=== PATIENT | female | born 1960 | race Asian ===

== ENCOUNTER 2017-04-12 11:43 | Emergency (ER) | payer OTHER, BC ==
--- NOTE | 2017-04-12 11:53 | PDOC ---
History of Present Illness - General Chief Complaint: Shortness of Breath Stated Complaint: Shortness of Breath/HEADACHE Time Seen by Provider: 04/12/17 11:50 History Source: Patient Exam Limitations: No Limitations - History of Present Illness Initial Comments: CHIEF COMPLAINT: 56 y/o afebrile female with PMH HTN, HLD c/o SOB with chest pain this morning and right LE pain for the past few days. HISTORY OF PRESENT ILLNESS: The patient states she is short of breath today, no matter what she is doing. This morning she had some anterior chest pain and took an Aspirin. She took her BP at work and it was 185/95. She also admits to right LE pain for the past few days but thinks it's just a muscle. She denies f/c, MAHARAJ, neck pain, changes in vision/hearing, cough, orthopnea, n/v/d, abd pain, hematuria, dysuria, redness/warmth to affected extremity. The patient denies smoking history, recent travel or hormone use. Vital signs on arrival are BP of 170/92. REVIEW OF SYSTEMS: GENERAL/CONSTITUTIONAL: No fever/chills. No weakness. No weight change. HEAD, EYES, EARS, NOSE AND THROAT: No change in vision. No ear pain or discharge. No sore throat. CARDIOVASCULAR: +SOB and chest pain. RESPIRATORY: No cough, wheezing, or hemoptysis. GASTROINTESTINAL: No abd pain, nausea, vomiting, diarrhea. GENITOURINARY: No dysuria, frequency, or change in urination. MUSCULOSKELETAL: +right calf pain. No neck or back pain. SKIN: No rash or easy bruising. NEUROLOGIC: No headache, vertigo, loss of consciousness, or loss of sensation. PHYSICAL EXAM: GENERAL: The patient is awake, alert, and fully oriented, in no acute distress. She is well appearing, ambulatory, in NAD or obvious discomfort. HEAD: Normal with no signs of trauma. ENT: Pupils equal, round and reactive to light, extraocular movements intact, sclera anicteric, conjunctiva clear. Neck supple. LUNGS: Clear to auscultation bilaterally. Normal excursion. No respiratory distress or use of accessory muscles. CV: RRR, S1/S2, no MRG. Cap refill < 2 sec. ABDOMEN: Soft, non-distended, non-tender even to deep palpation, no hepatomegaly or splenomegaly, no masses. EXTREMITIES: Normal range of motion, no edema. No erythema, warmth or edema to right LE. TTP of medial, proximal right calf. NEUROLOGICAL: Normal speech, normal gait. CN II-XII grossly intact. PSYCH: Normal mood, normal affect. SKIN: Warm, dry, normal turgor, no rashes or lesions noted. Past History - Past Medical History Allergies/Adverse Reactions: Allergies Allergy/AdvReac Type Severity Reaction Status Date / Time No Known Allergies Allergy Verified 10/25/15 07:33 Home Medications: Ambulatory Orders Atorvastatin Ca [Lipitor -] 10 mg PO HS 10/25/15 Metoprolol Tartrate [Lopressor -] 25 mg PO DAILY 10/25/15 Hydrochlorothiazide [Hctz -] 12.5 mg PO DAILY 04/12/17 Diabetes: Yes (BORDERLINE) HTN: Yes Hypercholesterolemia: Yes - Psycho/Social/Smoking Cessation Hx Suicidal Ideation: No Smoking History: Never smoked Heart Score/ECG Review - ECG Intrepretation Comment:: Twelve-lead EKG was performed and reviewed by Dr. Walker. There is normal sinus rhythm with a normal rate. The axis is normal. The intervals are normal. There are no ST or T wave abnormalities. Impression: Normal twelve-lead EKG ED Treatment Course - LABORATORY CBC & Chemistry Diagram: 04/12/17 13:15 04/12/17 13:15 Medical Decision Making - Medical Decision Making A/P: 56 y/o female with chest pain and SOB today with a few days of right calf pain. Plan is as follows: 1. EKG 2. CXR 3. Labs 4. LE doppler LE Doppler IMPRESSION: No DVT seen in the right leg. EKG normal Labs unremarkable CXR IMPRESSION: No acute pathology. The patient continues to feel well. Her BP has come down. Gave her all results and plan for discharge to home. She is amenable. Suggested she continue taking her BP meds as prescribed and f/u with Dr. Perry for blood pressure check/possible med change. Instructed her to return to the ER immediately with any worsening or concerning symptoms. The patient verbalizes understanding of all instructions, has no further questions and is awaiting discharge. *DC/Admit/Observation/Transfer Diagnosis at time of Disposition: Shortness of breath Muscle strain of lower leg Qualifiers: Encounter type: initial encounter Laterality: right Qualified Code(s): S86.911A - Strain of unspecified muscle(s) and tendon(s) at lower leg level, right leg, initial encounter - Discharge Dispostion Disposition: HOME Condition at time of disposition: Improved - Referrals Referrals: Awais Perry MD [Primary Care Provider] - - Patient Instructions Printed Discharge Instructions: DI for Shortness of Breath, DI for Calf Muscle Strain Additional Instructions: Discharge Instructions: -Follow up with Dr. Perry for repeat blood pressure check -Continue taking your blood pressure medication as prescribed -Follow discharge instructions -Return to the ER with any worsening or concerning symptoms
[2017-04-12 12:15] VITALS: BMI 22.6
[2017-04-12 13:24] LABS: BASOPHIL 0.7 % (0-2.0); EOSINOPHIL 3.4 % (0-4.5); MCH 29.2 pg (25.7-33.7); MCHC 34.2 g/dl (32.0-36.0); MEAN CELL VOLUME 85.3 fl (80-96); MEAN PLT VOLUME 9.1 fl (7.5-11.1); NEUTROPHILS 65.1 % (42.8-82.8); PLATELET COUNT 225 K/MM3 (134-434); RDW 13.6 % (11.6-15.6); WHITE BLOOD COUNT 8.8 K/mm3 (4.0-10.0)
--- NOTE | 2017-04-12 13:34 | PDOC ---
*Physical Exam - Vital Signs Last Vital Signs Temp Pulse Resp BP Pulse Ox 97.4 F L 70 18 170/92 100 04/12/17 11:43 04/12/17 11:43 04/12/17 11:43 04/12/17 11:43 04/12/17 11:43 Heart Score/ECG Review #1 ECG reviewed & interpreted by me at: 13:34 General ECG Interpretation: Sinus Rhythm, Normal Rate, Normal Intervals, No acute ischemic changes ED Treatment Course - LABORATORY CBC & Chemistry Diagram: 04/12/17 13:15 04/12/17 13:15 - ADDITIONAL ORDERS Additional order review: 04/12/17 13:15 RBC 4.75 MCV 85.3 MCHC 34.2 RDW 13.6 MPV 9.1 Neutrophils % 65.1 Lymphocytes % 22.5 Monocytes % 8.3 Eosinophils % 3.4 Basophils % 0.7 Medical Decision Making - Medical Decision Making 04/13/17 08:40 Pt seen by Midlevel Provider under my direct supervision Ancillary studies reviewed I agree with plan as outlined by Midlevel Provider *DC/Admit/Observation/Transfer Diagnosis at time of Disposition: Shortness of breath, Muscle strain, lower leg - Discharge Dispostion Disposition: HOME Condition at time of disposition: Improved - Referrals Referrals: Awais Perry MD [Primary Care Provider] - - Patient Instructions Printed Discharge Instructions: DI for Calf Muscle Strain, DI for Shortness of Breath Additional Instructions: Discharge Instructions: -Follow up with Dr. Perry for repeat blood pressure check -Continue taking your blood pressure medication as prescribed -Follow discharge instructions -Return to the ER with any worsening or concerning symptoms
[2017-04-12 13:51] LABS: ALBUMIN 3.8 g/dl (3.4-5.0); ANION GAP 14 (8-16); BILIRUBIN,TOTAL 0.9 mg/dL (0.2-1.0); CALCIUM 9.4 mg/dL (8.5-10.1); CO2 25 mmol/L (21-32); CREATININE 0.8 mg/dL (0.55-1.02); GLUCOSE,RANDOM 126 mg/dL (74-106); SGPT/ALT 53 U/L (12-78); TOT PROT 7.4 g/dl (6.4-8.2)
[2017-04-12 13:53] LABS: ALK PHOS 63 U/L (45-117); TROPONIN I < 0.02 ng/ml (0.00-0.05)
[2017-04-12 13:54] LABS: SGOT/AST 41 U/L (15-37)
--- NOTE | 2017-04-12 14:42 | EKG ---
Test Reason : Blood Pressure : / mmHG Vent. Rate : 072 BPM Atrial Rate : 072 BPM P-R Int : 156 ms QRS Dur : 066 ms QT Int : 430 ms P-R-T Axes : 053 002 050 degrees QTc Int : 470 ms NORMAL SINUS RHYTHM NORMAL ECG WHEN COMPARED WITH ECG OF 02-FEB-2009 07:03, NO SIGNIFICANT CHANGE WAS FOUND Confirmed by FEDERICO UNDERWOOD MD ([id number]) on 04/12/2017 2:42:39 PM Referred By: Confirmed By:FEDERICO UNDERWOOD MD
[2017-04-12 17:58] VITALS: BP 148/84; PULSE 71; TEMP 99
== END 2017-04-12 17:58 | disposition home or self-care (01) ==
LOC: JER 11:43
DX: R06.02 Shortness of breath (principal); S86.911A Strain of unspecified muscle(s) and tendon(s) at lower leg level, right leg, initial encounter; I10 Essential (primary) hypertension; E78.00 Pure hypercholesterolemia, unspecified; E11.9 Type 2 diabetes mellitus without complications; X58.XXXA Exposure to other specified factors, initial encounter; Y93.9 Activity, unspecified; Y92.89 Other specified places as the place of occurrence of the external cause
CPT/HCPCS: 36415; 71020-TC; 80053; 82550; 82553; 83880; 84484; 85025; 93005; 93010; 93971-TC; 99283-25